=== PATIENT | female | born 1975 | race Caucasian/White ===

== ENCOUNTER 2023-05-03 18:16 | Emergency (ER) | payer BC, SELFPAY ==
--- NOTE | ~2023-05-03 | XR_ITS ---
Examination: Bilateral ankle. CLINICAL INDICATION: Fall. Pain. COMPARISON: None. TECHNIQUE: 3 views each axilla. FINDINGS: Right ankle: There is moderate lateral malleolar soft tissue swelling. No visible acute fracture, dislocation or subluxation seen. No bony erosive changes. The soft tissues are normal. Left ankle: There is an oblique nondisplaced fracture distal fibula with moderate lateral malleolar soft tissue swelling. The ankle mortise and subtalar joints are normal.
[2023-05-03 18:32] VITALS: BP 128/73; PULSE 80; RESP 18; TEMP 36.7; O2SAT 95
[2023-05-03 18:44] VITALS: BMI 34.9
--- NOTE | 2023-05-03 19:06 | ED.GENADULT ---
HPI - General Adult General Chief complaint: Extremity Injury, Lower Stated complaint: ankle injury Time Seen by Provider: 05/03/23 18:25 Source: patient, family (Has been), RN notes reviewed and old records reviewed Mode of arrival: EMS Limitations: no limitations History of Present Illness HPI narrative: 48-year-old female presents for evaluation of bilateral ankle pain. Patient reports that she was stepping out of a car while carrying a car seat She reports that her right ankle twisted and she describes an inversion injury She reports that she then tried to catch her balance with her left foot and reports that she rolled her left ankle also with an inversion injury She states that her left ankle hurts more than the right ankle but both of them have moderate pain No other complaints or injuries The patient reports that she fell on her left side but did not hit her head or lose consciousness Related Data Previous Rx's Medication Instructions Recorded oxycodone 5 mg tablet 5 mg PO Q6H PRN severe pain (scale 05/03/23 score 7-10) #16 tabs Allergies Allergy/AdvReac Type Severity Reaction Status Date / Time metoclopramide [From Reglan] Allergy Severe Shakiness Verified 05/03/23 19:02 prochlorperazine Allergy Severe Shakiness Verified 05/03/23 19:02 [From Compazine] promethazine [From Phenergan] Allergy Severe Shakiness Verified 05/03/23 19:02 Latex, Natural Rubber Allergy Mild Redness of Verified 05/03/23 19:02 Skin Review of Systems Musculoskeletal: Musculoskeletal: Reports arthralgias, Reports joint swelling and Reports limited range of motion PMFSH Social History Social History Advance Directives: No Advance Directives Information Provided: Yes Patient : No Physical Exam ED Vital Signs: Vital Signs - 24 hr 05/03/23 18:32 05/03/23 19:30 Temperature 98.1 F 98.4 F Pulse Rate 80 85 Respiratory Rate 18 20 Blood Pressure 128/73 109/72 Pulse Oximetry 95 98 Oxygen Delivery Method Room Air Room Air BMI result Body Mass Index 34.9 Const General: healthy appearing, comfortable, no acute distress, alert and awake Nutritional Appearance: well nourished Orientation/consciousness: patient oriented x3 HENMT Head: Yes normocephalic and Yes atraumatic Eyes Eyelids: Yes eyelids normal Conjunctivae: conjunctivae normal Sclerae: sclerae normal Corneas: corneas normal Pupils: Equal, round and reactive pupils present EOM: EOMs intact bilaterally Neck Neck: Yes full ROM Resp Effort & Inspection: normal respiratory effort, able to speak in complete sentences and not labored Skin General skin exam: no rashes or lesions noted and elasticity normal Neuro General: patient oriented x3 Cranial nerves: Yes Equal, round and reactive pupils present and Yes Bilaterally intact EOM present Cognition (Neuro): normal cognition Extrem Other: Patient has bilateral ankle edema over the lateral malleolus. She is tender to the lateral malleolus bilaterally. Patient has some tenderness extending up the left lower extremity to the distal fibula. No significant deformity to this area. No open wounds or lacerations. Distal sensation and capillary refill intact to all digits of the feet bilaterally Medications Administered Discontinued Medications Generic Name Dose Route Start Last Admin Trade Name Freq PRN Reason Stop Dose Admin Oxycodone HCl 10 mg 05/03/23 19:02 05/03/23 19:32 Oxycodone Hcl Immed Release 5 Mg Tablet PO 05/03/23 19:03 10 mg ONCE ONE Administration Medical Decision Making Medical Decision Making [facility] Narrative: Patient sustained a fall injuring both of her ankles, will obtain x-rays of both ankles. I did remove 2 toe rings off of each foot to prevent constricting injury. Patient was medically of oxycodone orally. Differential Diagnosis Differential Diagnoses: The differential diagnosis associated with the presentation includes Ankle sprain Ankle fracture Ankle dislocation Contusion Independent Interpretation I performed an independent interpretation of an: Plain X-Ray (Acute left distal fibular spiral fracture. No fracture of right ankle) Radiology Impression Discussion of test interpretation with radiology: I have reviewed the radiologist's reading. (Confirms acute left distal fibula oblique fracture) Discharge Plan Discharge Clinical Impression: Ankle sprain and strain Closed fibular fracture Qualifiers: Encounter type: initial encounter Fracture morphology: oblique Laterality: left Patient Disposition: Home, Self-Care Instructions: Leg Fracture (ED) Additional Instructions: You have a fracture to her left lower leg of the fibula. Keep the splint intact until you follow-up with orthopedics and they apply a cast Do not get the splint wet Use ibuprofen or Tylenol for pain Use oxycodone for more severe, breakthrough pain This may make you sleepy, do not drink alcohol or dry after taking Follow-up with orthopedics at the number provided Prescriptions: New oxycodone 5 mg tablet 5 mg PO Q6H PRN (Reason: severe pain (scale score 7-10)) Qty: 16 0RF Rx Instructions: Partial Fill upon patient request. Referrals: Michael Veras MD [Physician] - (acute left distal fibula fracture) Stand Alone Forms: Work/School Release
[2023-05-03 19:30] VITALS: BP 109/72; PULSE 85; RESP 20; TEMP 36.9; O2SAT 98
== END 2023-05-03 20:43 | disposition home or self-care (01) ==
PROVIDERS: Emergency Provider Internal Medicine; PCP Internal Medicine
DX: S82.65XA Nondisplaced fracture of lateral malleolus of left fibula, initial encounter for closed fracture (principal); S93.401A Sprain of unspecified ligament of right ankle, initial encounter; X50.1XXA Overexertion from prolonged static or awkward postures, initial encounter; Y93.89 Activity, other specified; Y92.014 Private driveway to single-family (private) house as the place of occurrence of the external cause; Y99.9 Unspecified external cause status
CPT/HCPCS: 73610; 99284